=== PATIENT | female | born 1955 | race Hispanic/Latino ===

== ENCOUNTER 2017-01-25 13:35 | Emergency (ER) | payer BC ==
[2017-01-25 13:35] VITALS: BMI 23.8
[2017-01-25 13:42] VITALS: TEMP 98.3; O2SAT 98
--- NOTE | 2017-01-25 16:10 | C.PDOC ---
History Of Present Illness 62 year old female, with a history of right leg injury in 2008, presents to the ED for evaluation of right leg swelling and rule out of DVT. Patient has had multiple surgeries and was seen by canvas worker for constant swelling following the surgeries. Her last visit to her doctor, more swelling was noted and was referred to ED for rule out of DVT. Patient denies weakness, numbness, chest pain, or shortness of breath. Chief Complaint (Nursing): Lower Extremity Problem/Injury History Per: Patient History/Exam Limitations: no limitations Onset/Duration Of Symptoms: Persistent (constant right leg swelling ) Current Symptoms Are (Timing): Still Present Recent travel outside of the [place]: No Past Medical History Reviewed: Historical Data, Nursing Documentation, Vital Signs Vital Signs: Last Vital Signs Temp 98.3 F 01/25/17 13:39 Pulse 78 01/25/17 16:17 Resp 16 01/25/17 16:17 BP 139/86 01/25/17 16:17 Pulse Ox 98 01/26/17 09:14 - Medical History PMH: Fractures, HTN, Hypercholesterolemia, Hypothyroidism - [facility] Procedures ENDO RECTUM POLYPECTOMY (10/10/14) ENDOSC POLYPECTOMY OF LG INTEST (10/10/14) Family History: States: Unknown Family Hx - Social History Hx Alcohol Use: No Hx Substance Use: No Review Of Systems Constitutional: Negative for: Fever, Chills Cardiovascular: Negative for: Chest Pain, Palpitations Respiratory: Negative for: Cough, Shortness of Breath Gastrointestinal: Negative for: Nausea, Vomiting Musculoskeletal: Positive for: Other (constant right leg swelling ) Neurological: Negative for: Weakness, Numbness Physical Exam - Physical Exam Appears: Non-toxic, No Acute Distress Skin: Warm, Dry Head: Atraumatic Eye(s): bilateral: Normal Inspection Oral Mucosa: Moist Neck: Supple Chest: Symmetrical, No Deformity Cardiovascular: Rhythm Regular Respiratory: Normal Breath Sounds, No Rales, No Rhonchi, No Stridor Extremity: No Normal ROM (decreased ROM of the right knee following surgeries. Normal ROM of the left leg. ), No Tenderness, No Calf Tenderness, Capillary Refill (good capillary refill, less than two seconds ), No Deformity, Swelling ( swelling of the right leg ), Other (No warmth, open sores, or erythema to the extremities. Multiple post-operative scars. ) Pulses: Left Dorsalis Pedis: Normal, Right Dorsalis Pedis: Normal Neurological/Psych: Oriented x3, Normal Speech, Normal Cognition, Normal Motor, Normal Sensation ED Course And Treatment O2 Sat by Pulse Oximetry: 98 (room air ) Progress Note: A venous doppler was performed and was negative for DVT. Disposition - Disposition Disposition: HOME/ ROUTINE Disposition Time: 16:09 Condition: GOOD Additional Instructions: Follow up with your PMD within 1-2 days. Return to ED if feel worse. Instructions: Leg Edema (ED) Forms: [employer] (Mongolian) - Clinical Impression Clinical Impression: Swollen leg - Scribe Statement The provider has reviewed the documentation as recorded by the Scribe Lucina Arellano All medical record entries made by the Scribe were at my direction and personally dictated by me. I have reviewed the chart and agree that the record accurately reflects my personal performance of the history, physical exam, medical decision making, and the department course for this patient. I have also personally directed, reviewed, and agree with the discharge instructions and disposition.
[2017-01-25 16:18] VITALS: BP 139/86; PULSE 78; RESP 16
--- NOTE | 2017-01-28 10:49 | VASCLAB ---
PROCEDURE: Right Lower Extremity Venous Duplex Exam. HISTORY: Leg swelling PRIORS: None. TECHNIQUE: Right common femoral, femoral, popliteal and posterior tibial, peroneal and great saphenous veins were evaluated. Flow was assessed with color Doppler, compressibility, assessment of phasic flow and augmentation response. Report prepared by FREDDIE Saucedo, RVT FINDINGS: RIGHT: 1. Common Femoral Vein: 1.1. Compressibility - Fully compressible: Thrombus - None: Flow - Phasic: Augmentation -Normal: Reflux - None. 2. Femoral Vein: 2.1. Compressibility - Fully compressible: Thrombus - None: Flow - Phasic: Augmentation -Normal: Reflux - None. 3. Popliteal Vein: 3.1. Compressibility - Fully compressible: Thrombus - None: Flow - Phasic: Augmentation -Normal: Reflux - None. 4. Posterior Tibial Vein: 4.1. Compressibility - Fully compressible: Thrombus - None: Flow - Phasic: Augmentation -Normal: Reflux - None. 5. Peroneal Vein: 5.1. Compressibility - Fully compressible: Thrombus - None: Flow - Phasic: Augmentation -Normal: Reflux - None. 6. Great Saphenous Vein: 6.1. Compressibility - Fully compressible: Thrombus -None: Flow - Phasic: Augmentation - Normal: Reflux - None. OTHER FINDINGS: IMPRESSION: No evidence of deep or superficial vein thrombosis of the right lower extremity with excellent venous flow. Normal valve function noted of the right side. Normal venous flow noted in the left common femoral vein.
== END 2017-01-25 16:17 | disposition home or self-care (01) ==
LOC: C.ER 13:35
DX: M79.89 Other specified soft tissue disorders (principal)